=== PATIENT | male | born 1985 | race Caucasian/White ===

== ENCOUNTER 2022-04-12 17:31 | Emergency (ER) | payer MEDICAID, SELFPAY ==
[2022-04-12 17:40] VITALS: BP 150/82; PULSE 73; RESP 18; TEMP 36.5; O2SAT 98; BMI 23.7
--- NOTE | 2022-04-12 17:47 | CRLHL7_ITS ---
For Patients: As a result of the Century Cures Act, medical imaging exams and procedure reports are released immediately into your electronic medical record. You may view this report before your referring provider. If you have questions, please contact your health care provider. INDICATION: Right shoulder pain. TECHNIQUE: Three views of the right shoulder. COMPARISON: None. FINDINGS: No joint space narrowing or erosive change. Soft tissue calcification projected over and superior to the greater tuberosity, suggesting calcific tendinitis. IMPRESSION: Suspected calcific tendinitis. Dictated by Ganesh Durand MD @ 04/12/2022 6:15:00 PM (Electronically Signed)
[2022-04-12] MEDS: predniSONE 10 MG TABLET 50 MG PO (18:09)
[2022-04-12] MEDS: KETOROLAC 10 MG TABLET PO (18:09)
--- NOTE | 2022-04-12 18:47 | ED.NURSE ---
pt given insty meds for toradol and prednisone
--- NOTE | 2022-04-21 12:57 | ED_ITS ---
HPI - General Adult General Chief complaint: Extremity Pain/Injury, Upper Stated complaint: Right Shoulder Pain,Can't Move It-bump on shoulder Time Seen by Provider: 04/12/22 17:34 History of Present Illness HPI narrative: Patient presents with significant shoulder pain. He describes it and is very painful to abduct his shoulder. He has no swelling of the arm, no real trauma. Does report a remote remote history of trauma. He has had trouble using the arm is been very painful. No redness swelling, no fevers. Related Data Home Medications Medication Instructions Recorded Confirmed No Known Home Medications 04/12/22 04/16/22 Allergies Allergy/AdvReac Type Severity Reaction Status Date / Time No Known Drug Allergies Allergy Verified 04/17/22 10:51 Review of Systems Status of ROS: Reports: 6 or more systems reviewed and unremarkable except as noted in History and below [facility] Social History Smoking Status: Never smoker How often do you have a drink containing alcohol: never AUDIT-C Alcohol total score: 0 Non-prescribed substance use: denies use Exam Narrative: Exam Narrative: Limited range motion of the right shoulder, good distal CMS, no redness or warmth of the shoulder. Some mild tenderness over his anterior shoulder consistent with tendinitis Course Vital Signs Vital signs: Initial Vital Signs Temperature 97.7 F 04/12/22 17:40 Temperature Source Temporal Artery Scan 04/12/22 17:40 Pulse Rate 73 04/12/22 17:40 Respiratory Rate 18 04/12/22 17:40 Blood Pressure 150/82 H 04/12/22 17:40 Blood Pressure Mean 104 04/12/22 17:40 Blood Pressure Position Sitting 04/12/22 17:40 Pulse Oximetry 98 04/12/22 17:40 Oxygen Delivery Method 04/12/22 17:40 Vital Signs Temperature 97.7 F 04/12/22 17:40 Pulse Rate 73 04/12/22 17:40 Respiratory Rate 18 04/12/22 17:40 Blood Pressure 150/82 H 04/12/22 17:40 Pulse Oximetry 98 04/12/22 17:40 Oxygen Delivery Method 04/12/22 17:40 Temperature 97.7 F 04/12/22 17:40 Pulse Rate 73 04/12/22 17:40 Respiratory Rate 18 04/12/22 17:40 Blood Pressure 150/82 H 04/12/22 17:40 Pulse Oximetry 98 04/12/22 17:40 Oxygen Delivery Method 04/12/22 17:40 Medical Decision Making MDM Narrative Medical decision making narrative: Patient will get an x-ray of his shoulder, arm sling, recommend icing, anti- inflammatory. Addendum: X-ray of the shoulder shows calcific tendinitis, no fracture. At this point I think he should follow-up with orthopedics arm sling ice anti- inflammatory return as needed, light activity, recheck per Ortho Discharge Plan Discharge Clinical Impression: Acute shoulder pain Patient Disposition: Home, Self-Care Condition: Stable Additional Instructions: Sling, off work, ice to the shoulder 10 minutes 3 times a day if possible, Toradol and prednisone as home from [facility]. Appointment will be requested from the orthopedic office for assessment of his right shoulder, he has calcific tendinitis, and some a some diminishment of his movement consistent with a mild frozen shoulder. He needs to have orthopedic consultation as mention. He also complains of some left hip discomfort and has a prior imaging study can review with Orthopedics at that time. Activity Level: Light activity Activity Detail: Off work until sees Ortho Discharge Diet: Regular Prescriptions: No Action No Known Home Medications Follow Up/Referrals: Provider,Not a Local [Primary Care Provider] - Stand Alone Forms: [employer] Info Instructions
== END 2022-04-12 18:46 | disposition home or self-care (01) ==
PROVIDERS: Emergency Provider Family Medicine
DX: M25.511 Pain in right shoulder (principal)
CPT/HCPCS: 73030; 99283; A9270; J7512

== ENCOUNTER 2022-05-01 07:03 | Outpatient (CLI) | payer MEDICAID, SELFPAY ==
--- NOTE | 2022-05-01 07:15 | MR_ITS ---
[address] [address] Phone:?[phone] Fax:?[phone] Referring Physician Information: Mykel Win [address] [facility] [address] Phone:?[phone] Fax:?[phone] Patient:Margaux Lane D.O.B:?1985 Sex:?Male Phone:?[phone] [facility] MRN:?[id number] Exam Date:?05/01/2022 ? EXAM: MRI EXAMINATION OF THE RIGHT SHOULDER CLINICAL INFORMATION: Right shoulder pain. No specific injury. No history of surgery to this area. Calcific tendinitis. TECHNICAL INFORMATION: Coronal STIR as well as axial, sagittal and coronal PD and T2-weighted images were acquired. INTERPRETATION: Bones: There is no Hill-Sachs impaction deformity. No other evidence for an occult fracture or osseous contusion. No other bone marrow edema pattern. Rotator Cuff: There is an abnormal appearance as seen on series 8 images 6 and 7 as well as series 5 images 11 through 14 of an approximate 1.2 cm AP by 0.4 cm mediolateral low signal intensity focus of tissue within and also just overlying the distal supraspinatus tendon fibers. There is surrounding increased signal intensity of the tendon fibers and surrounding slender intrasubstance partial tearing. Mild infraspinatus tendinopathy. The teres minor tendon is intact. The subscapularis tendon is intact. No appreciable rotator cuff muscle belly atrophy. Coracoacromial arch: There is no discrete subacromial osseous spur. The bony acromiohumeral interval is measuring 7 mm. There is no thickening identified of the coracoacromial ligament. Acromioclavicular joint: There is no significant acromioclavicular joint degenerative arthrosis. No deformity of the underlying supraspinatus tendon. Moderate to marked fluid and edema signal within the subacromial/subdeltoid bursa areas. Biceps tendon: The long head biceps tendon is intact and nondisplaced from the bicipital groove. No evidence for a tendon tear or appreciable changes of tendinopathy. Glenohumeral joint and labrum: No significant glenohumeral joint effusion. No discrete loose body within the joint. Osteochondral surfaces appear relatively preserved. No discrete SLAP tear. No other definite evidence for labral tear. No discrete paralabral cyst is identified. CONCLUSION: 1. There is a 1.2 x 0.4 cm low signal intensity focus of predominantly within, but also just overlying the distal supraspinatus tendon. Appearance in keeping with calcific tendinitis and overlying calcific bursitis. Increased signal intensity with slender intrasubstance partial tearing of the directly surrounding tendon fibers. 2. Borderline narrowed acromiohumeral interval. Moderate to marked subacromial/subdeltoid bursitis. 3. Unremarkable and intact long head biceps tendon. 4. No evidence for glenohumeral chondromalacia. 5. No definite labral tear. No paralabral ganglion cyst. KES Electronically signed on 05/01/2022 9:40:00 AM by Ac Doyle M.D.
== END 2022-05-01 07:04 | disposition home or self-care (01) ==
LOC: MRI 07:04
PROVIDERS: Visit Provider Physician Assistant Surgical
DX: M25.511 Pain in right shoulder (principal); M75.31 Calcific tendinitis of right shoulder; M75.51 Bursitis of right shoulder
CPT/HCPCS: 73221

== ENCOUNTER 2023-12-21 04:20 | Outpatient (CLI) | payer MEDICAID, SELFPAY ==
--- OUTSIDE RECORDS SUMMARY | 2023-12-24 15:51 | XMS_ITS | Clinical Summary ---
Author Organization [facility] Address [place], [place] [address] Care Team Providers Care Manager Fleet Name Role Phone Pcp, No Primary Care [...] Comments Blood Pressure 116/70 03/06/2020 10:32 AM BUSINESS DEVELOPMENT REPRESENTATIVE Pulse 71 03/06/2020 10:32 AM BUSINESS DEVELOPMENT REPRESENTATIVE Temperature 36.6 ??C (97.8 ??F) 07/14/2014 10:56 AM C DT Respiratory Rate 12 07/14/2014 10:56 AM CDT Oxygen Saturation 100% 03/06/2020 10:32 AM BUSINESS DEVELOPMENT REPRESENTATIVE Inhaled Oxygen Concentration - - Weight 78.7 kg (173 lb 6.4 oz) 03/06/2020 10:32 AM BUSINESS DEVELOPMENT REPRESENTATIVE Height 175.3 cm (5' 9.02) 07/14/2014 10:56 [...] COVID-19 vaccine series (1 - 2023-24 season) 2023 Influenza for age 9-49 12/19/2023 Pneumococcal series for age 6-64 Aged Out No longer eligible based on patient's age to complete this topic Care Teams Manager Fleet Relationship Specialty Start Date End Date Pcp, No . PCP - General 03/07/11
== END 2023-12-21 04:21 | disposition home or self-care (01) ==
PROVIDERS: Visit Provider Family Medicine
DX: R10.9 Unspecified abdominal pain (principal)
CPT/HCPCS: A0425; A0433

== ENCOUNTER 2023-12-21 04:56 | Emergency (ER) | payer MEDICAID, SELFPAY ==
[2023-12-21 05:00] VITALS: BP 139/82; PULSE 73; RESP 18; TEMP 37; O2SAT 98; BMI 25.1
--- NOTE | 2023-12-21 05:09 | ED.GENADULT ---
HPI - General Adult General Time Seen by Provider: 05:09 Date Seen: 12/21/23 Chief complaint: Flank Pain Stated complaint: Kidney stone Time Seen by Provider: 12/21/23 05:08 Source: patient and RN notes reviewed Mode of arrival: ambulatory Limitations: no limitations History of Present Illness HPI narrative: Max is a very pleasant 38-year-old gentleman with known history of kidney stones who comes to the emergency room for evaluation regarding the sudden onset of left flank pain. He awoke to this pain at approximately 0300 hours. The pain radiated around to his left groin. He also had vomiting. EMS was called and patient had an IV placed. He was given fentanyl 100 mcg followed by morphine 5 mg x 2. He is currently seen in room 5 in the ED. Max notes that the pain is still present but does not wish to have any pain medication at this time. He notes that the pain always seems to be on the left. Movement does not change the pain. He has not noticed any blood in his urine. He has not had any fever or chills. No recent cough cold congestion. He had not taken any pain medications at home. It had been over a year since this has happened to him. Related Data Previous Rx's ?Medication ?Instructions ?Recorded hydrocodone 5 mg-acetaminophen 325 See Rx Instructions .Route 12/21/23 mg tablet .COMPLEX PRN pain #10 tabs ketorolac 10 mg tablet 10 mg PO Q6H PRN pain #20 tabs 12/21/23 ondansetron 4 mg disintegrating 4 mg PO Q8H PRN nausea and 12/21/23 tablet vomiting #10 tabs tamsulosin 0.4 mg capsule (Flomax) 0.4 mg PO DAILY #7 caps 12/21/23 Allergies Allergy/AdvReac Type Severity Reaction Status Date / Time No Known Drug Allergies Allergy Verified 12/21/23 05:04 Review of Systems Status of ROS: Reports: 10 or more systems reviewed and unremarkable except as noted in History and below Const: Denies: fever or chills ENMT: Denies: throat pain or nasal congestion Cardio: Denies: chest pain or shortness of breath with exertion Resp: Denies: shortness of breath or cough GI: Reports: abdominal pain, nausea and vomiting; Denies: diarrhea or constipation : Denies: painful urination, urinary frequency or blood in urine Musculo: Reports: back pain (Left flank) Integ/Breast: Denies: rash Neuro: Denies: headache PFSH [facility] Medical History Migraine headache ?G43.909 - Migraine, unspecified, not intractable, without status migrainosus (ICD-10) Influenza ?J11.1 - Influenza due to unidentified influenza virus with other respiratory manifestations (ICD-10) Calculus of kidney ?N20.0 - Calculus of kidney (ICD-10) Social History Smoking Status: Never smoker Do you use any of these nicotine containing products: None Second hand tobacco smoke exposure: No How often do you have a drink containing alcohol: never AUDIT-C Alcohol total score: 0 Non-prescribed substance use: denies use service: No Exam Narrative: Exam Narrative: Gene is alert and oriented. He does appear to be in some discomfort. He is able to answer questions. External ears eyes nose clear. Appropriate speech. Heart with regular rate and rhythm and lungs are clear bilaterally. Abdomen is soft. Lower extremities without edema. Const: Vital Signs, click to edit/add: Vital Signs - 24 hr 12/21/23 05:00 Temperature 98.6 F Pulse Rate [Pulse Oximeter] 73 Respiratory Rate 18 Blood Pressure [Ri ght Upper Arm] 139/82 Pulse Oximetry 98 Oxygen Delivery Me thod Room Air Documenting provider has reviewed patient's vital signs: yes Course Course ED Course: At this time I do speak to Isidro at about doing CT. He is wondering if we could do an x-ray instead as he was told that he should not have CTs. We do talk about this and I do tell him that an x-ray may not show exact location of the stone. Given the fact that he required so much pain medication and is still in discomfort I do recommend CT to ascertain location of the stone and size so that we are better able to estimate possibility of passage verses need for urological intervention. After discussions of pros and cons Isidro does agree to CT. This is been ordered as well as a CBC and a basic panel. 500 mL normal saline is also ordered as well as Toradol 15 mg IV. Reevaluation(s) Reevaluation #1: Patient noted to be much improved after Toradol. Vital Signs Vital signs: Initial Vital Signs Temperature 98.6 F 12/21/23 05:00 Temperature Source Temporal Artery Scan 12/21/23 05:00 Pulse Rate 73 12/21/23 05:00 Pulse Rhythm Regular 12/21/23 05:00 Respiratory Rate 18 12/21/23 05:00 Blood Pressure 139/82 12/21/23 05:00 Blood Pressure Mean 101 12/21/23 05:00 Blood Pressure Position Supine 12/21/23 05:00 Pulse Oximetry 98 12/21/23 05:00 Oxygen Delivery Method Room Air 12/21/23 05:00 Vital Signs Temperature 98.6 F 12/21/23 05:00 Pulse Rate 73 12/21/23 05:00 Respiratory Rate 18 12/21/23 05:00 Blood Pressure 139/82 12/21/23 05:00 Pulse Oximetry 98 12/21/23 05:00 Oxygen Delivery Method Room Air 12/21/23 05:00 Temperature 98.6 F 12/21/23 05:00 Pulse Rate 73 12/21/23 05:00 Respiratory Rate 18 12/21/23 05:00 Blood Pressure 139/82 12/21/23 05:00 Pulse Oximetry 98 12/21/23 05:00 Oxygen Delivery Method Room Air 12/21/23 05:00 Medications Administered Medications: Discontinued Medications Generic Name Dose Route Start Last Admin Trade Name Freq PRN Reason Stop Dose Admin Sodium Chloride 500 mls @ 500 mls/hr 12/21/23 05:16 12/21/23 06:35 0.9 % Sodium Chloride 500 Ml IV 12/21/23 06:15 Infused .Q1H ONE Infusion Ketorolac Tromethamine 15 mg 12/21/23 05:18 12/21/23 05:44 Ketorolac 15 Mg/Ml Inj IVP 12/21/23 05:19 15 mg ONCE ONE Administration Medical Decision Making MDM Narrative Medical decision making narrative: 1. Nephrolithiasis with ureteral colic-currently awaiting official radiological read but I do note a stone in the left ureter measuring approximately 3.5 mm. Patient appears to be improved with medications. Addendum: Stone is 4 mm in the proximal ureter. Urinalysis without evidence of UTI. Patient improved after Toradol in the emergency room. Patient had received narcotic pain medication by EMS. Patient will be departing home and will use Flomax 0.4 mg daily for 7 days to hopefully expedite passage of stone. Toradol 10 mg p.o. q.6 hours p.r.n. pain. 20. Cabins 5/3 25 1-2 tablets p.o. q.4-6 hours p.r.n. pain 10. Zofran 4 mg ODT Q 8 hours p.r.n. 10 all prescriptions sent to pharmacy. 2. Disposition-home at this time. Stressed the importance of straining the urine and monitoring for passage of stone. If patient notes stone and pain resolves, nothing more to do at this time unless he wants to follow through with appointment with Urology for stone prevention discussion. If patient does not note stone in has continuing pain will need to see primary MD for monitoring and management of this condition. Patient is instructed to return to the ED for increasing pain not relieved by his medications, fever, worsening symptoms. He voices understanding. Medical Records Medical records reviewed: Yes I reviewed the patient's medical records Lab Data Lab results reviewed: Yes I reviewed the patient's lab results Labs: Lab Results 12/21/23 12/21/23 Range/Units 05:25 06:56 WBC 6.27 (4.50-11.00) K/uL RBC 4.53 (4.30-5.90) m/uL Hgb 14.0 (13.5-17.5) gm/dL Hct 41.1 (37.0-53.0) % MCV 91 (80-100) fL MCH 31 (26-34) pg MCHC 34 (32-36) gm/dL RDW Coeff of Diana 11.6 (11.5-15.5) % Plt Count 134 L (140-440) K/uL Neut % (Auto) 64.1 (42.0-72.0) % Lymph % (Auto) 26.2 (20-44) % Beadle % (Auto) 7.0 (0.0-11.0) % Eos % (Auto) 2.2 (0.0-7.0) % Baso % (Auto) 0.3 (0.0-3.0) % Neut # (Auto) 4.02 (1.7-7.0) K/uL Lymph # (Auto) 1.64 (0.90-2.90) K/uL Beadle # (Auto) 0.40 (0.00-0.90) K/UL Eos # (Auto) 0.14 (0.00-0.50) K/uL Baso # (Auto) 0.02 (0.00-0.30) K/uL Abs Immat Gran (auto) 0.01 (0.00-0.30) K/uL Imm/Tot Granulo (auto) 0.2 % Sodium 137 (135-149) mmol/L Potassium 3.6 (3.6-5.1) mmol/L Chloride 107 (96-114) mmol/L Carbon Dioxide 25 (20-32) mmol/L Anion Gap 5 L (7-15) mEq/L BUN 16 (5-24) mg/dL Creatinine 0.8 (0.5-1.5) mg/dL Estimated Creat Clear 122.74 Estimated GFR 115 ml/min Glucose 102 (60-115) mg/dL Calcium 8.1 L (8.4-10.6) mg/dL Urine Color Yellow (Yellow) Urine Appearance Clear (Clear) Urine pH 7.0 (5.0-8.5) Ur Specific [place] 1.015 (1.000-1.030) Urine Protein Negative (Negative) Urine Glucose (UA) Negative (Negative) Urine Ketones Negative (Negative) Urine Blood 3+ A (Negative) Urine Nitrite Negative (Negative) Urine Bilirubin Negative (Negative) Urine Urobilinogen 0.2 (0.2-1.0) Ur Leukocyte Esterase Negative (Negative) Urine RBC 10-25 A (0-2) Urine WBC 0-2 (0-5) Ur Squamous Epith Cells Few (None-Few) Urine Bacteria None (None) Urine Mucus Moderate A (None) Imaging Data CT scan - abdomen: Attestation: I have reviewed the pertinent imaging results. My impression: By my read there does appear to be a 3.5 cm stone in the left ureter with mild hydronephrosis. Radiologist's impression: Lung bases: Normal. Liver: Normal. No mass. Gallbladder and bile ducts: Normal gallbladder. No bile duct dilation. Pancreas: Normal. Spleen: Normal. Adrenal glands: Normal. Kidneys: Normal renal size and position. No cyst or solid mass seen on noncontrast exam. There is a 4 millimeter calculus in the left proximal ureter. There is upstream ureterectasis and pelvocaliectasis. There is some very minimal Christiana ureteric stranding. There are several other bilateral 2-3 millimeter nonobstructing calculi, primarily in the right kidney. No right-sided urinary tract dilation. Urinary bladder: Normal. Pelvis: No cyst or mass. Vessels: Normal. Bowel: No dilated or inflamed bowel. Appendix not definitely seen.. Large stool burden. Lymph nodes: No adenopathy. Peritoneum: No ascites. Abdominal wall: No hernia. Bones: No fractures. No focal worrisome bone lesions. IMPRESSION: There is a 4 millimeter obstructing calculus in the left proximal ureter. Discharge Plan Discharge Clinical Impression: Nephrolithiasis, Colic, ureteral Patient Disposition: Home, Self-Care Condition: Improved Additional Instructions: There is a 4 mm kidney stone in urea left ureter. For pain: Zofran is a medicine that can be used for nausea so that you are able to take your other medications. Toradol 1 tablet as needed every 6 hours. This cannot be use longer than 5 days. For pain not relieved by Toradol Cabins which is a combination medication of Tylenol and hydrocodone on narcotic as needed. Please be aware that this medication will likely cause constipation and you may want to be on a stool softener at this time. In addition you should not use alcohol or drive if using this narcotic pain medication. Flomax is a medication to help speed the passage of the kidney stone. Take this once daily while you have the stone. Strain urine. If you see this stone in your pain improves you may discontinue all of these medications. If you do not see this stone and your pain continues please see your primary MD for a referral to Urology. Return to the emergency room for fever, chills, vomiting and as needed. Prescriptions: New ondansetron 4 mg tablet,disintegrating 4 mg PO Q8H PRN (Reason: nausea and vomiting) Qty: 10 0RF ketorolac 10 mg tablet 10 mg PO Q6H PRN (Reason: pain) Qty: 20 0RF Rx Instructions: maximum total duration of 5 days from all oral, intranasal, or parenteral formulations hydrocodone-acetaminophen 5-325 mg tablet See Rx Instructions .ROUTE .COMPLEX PRN (Reason: pain) Qty: 10 0RF Rx Instructions: 1-2 tabs p.o. q.4-6 hours p.r.n.. tamsulosin [Flomax] 0.4 mg capsule 0.4 mg PO DAILY Qty: 7 0RF Follow Up/Referrals: Provider,Not a Local [Primary Care Provider] - Stand Alone Forms: [employer] Info Instructions
--- NOTE | 2023-12-21 05:16 | CRLHL7_ITS ---
For Patients: As a result of the Century Cures Act, medical imaging exams and procedure reports are released immediately into your electronic medical record. You may view this report before your referring provider. If you have questions, please contact your health care provider. INDICATION: Left flank pain. COMPARISON: 01/27/2020 TECHNIQUE: CT of the abdomen and pelvis without intravenous contrast. Multiplanar axial, coronal, and sagittal reformats were reconstructed. Contrast: None. FINDINGS: Lung bases: Normal. Liver: Normal. No mass. Gallbladder and bile ducts: Normal gallbladder. No bile duct dilation. Pancreas: Normal. Spleen: Normal. Adrenal glands: Normal. Kidneys: Normal renal size and position. No cyst or solid mass seen on noncontrast exam. There is a 4 millimeter calculus in the left proximal ureter. There is upstream ureterectasis and pelvocaliectasis. There is some very minimal Christiana ureteric stranding. There are several other bilateral 2-3 millimeter nonobstructing calculi, primarily in the right kidney. No right-sided urinary tract dilation. Urinary bladder: Normal. Pelvis: No cyst or mass. Vessels: Normal. Bowel: No dilated or inflamed bowel. Appendix not definitely seen.. Large stool burden. Lymph nodes: No adenopathy. Peritoneum: No ascites. Abdominal wall: No hernia. Bones: No fractures. No focal worrisome bone lesions. IMPRESSION: There is a 4 millimeter obstructing calculus in the left proximal ureter. Please note that all CT scans at this facility use dose modulation, iterative reconstruction, and/or weight-based dosing when appropriate to reduce radiation dose to as low as reasonably achievable. Dictated by Sherlyn Merida MD @ 12/21/2023 6:23:57 AM (Electronically Signed)
[2023-12-21 05:29] LABS: Basophils Absolute Auto 0.02 K/uL (0.00-0.30); Basophils Percent Auto 0.3 % (0.0-3.0); Eosinophils Absolute Auto 0.14 K/uL (0.00-0.50); Eosinophils Percent Auto 2.2 % (0.0-7.0); Hematocrit 41.1 % (37.0-53.0); Immature Granulocytes Abs Auto 0.01 K/uL (0.00-0.30); Immature Granulocytes Pct Auto 0.2 %; Lymphocytes Absolute Auto 1.64 K/uL (0.90-2.90); Lymphocytes Percent Auto 26.2 % (20-44); Mean Corpuscular HGB Conc 34 gm/dL (32-36); Mean Corpuscular Hemoglobin 31 pg (26-34); Mean Corpuscular Volume 91 fL (80-100); Neutrophils Absolute Auto 4.02 K/uL (1.7-7.0); Neutrophils Percent Auto 64.1 % (42.0-72.0); Platelet Count* 134 K/uL (140-440); RDW Coefficient of Variation % 11.6 % (11.5-15.5); Red Blood Count 4.53 m/uL (4.30-5.90); White Blood Count* 6.27 K/uL (4.50-11.00)
--- OUTSIDE RECORDS SUMMARY | 2023-12-21 05:29 | XMS_ITS | Clinical Summary ---
Author Organization [email or web address] [facility] Address [place], [place] [address] Care Team Providers Care Employee Benefits Administrator Name Role Phone Pcp, No Primary Care Provider Unavailabl e Allergies No known active allergies Medications No known medications Active Problems No known active problems Social History Tobacco Use Types Packs/Day Years Used Date Smoking Tobacco: Never Smokeless Tobacco: Never Alcohol Use Standard Drinks/Week Comments No 0 (1 standard drink = 0.6 oz pur e alcohol) Sex and Gender Information Value Date Recorded Sex Assigned at Not on file Gender Identity Not on file Sexual Orientation Not on file Obstetrics History Last Filed Vital Signs Vital Sign Reading Time Taken Comments Blood Pressure 116/70 03/06/2020 10:32 AM SENIOR MARKETING MANAGER Pulse 71 03/06/2020 10:32 AM SENIOR MARKETING MANAGER Temperature 36.6 ??C (97.8 ??F) 07/14/2014 10:56 AM C DT Respiratory Rate 12 07/14/2014 10:56 AM CDT Oxygen Saturation 100% 03/06/2020 10:32 AM SENIOR MARKETING MANAGER Inhaled Oxygen Concentration - - Weight 78.7 kg (173 lb 6.4 oz) 03/06/2020 10:32 AM SENIOR MARKETING MANAGER Height 175.3 cm (5' 9.02) 07/14/2014 10:56 AM C DT Body Mass Index 25.59 07/14/2014 10:56 AM CDT Plan of Treatment Health Maintenance Due Date Last Done Comments Tdap 09/15/1994 Depression screening for age 12+ 1995 HIV for age 15-65 09/15/1998 BMI (ht and wt on same day) for age 18+ 09/15/2001 Hepatitis C screening for ag e 18-79 09/15/2001 Tetanus booster 2003 Lipids for age 35-44 09/15/2018 COVID-19 vaccine series (1 - 2023-24 season) 2022 Influenza for age 9-49 12/19/2023 Pneumococcal series for age 6-64 Aged Out No longer eligible based on patient's age to complete this topic Care Teams Employee Benefits Administrator Relationship Specialty Start Date End Date Pcp, No . PCP - General 03/07/11
[2023-12-21 05:40] LABS: Slide Review Reflex No
[2023-12-21 05:43] LABS: Chloride* 107 mmol/L (96-114); Sodium* 137 mmol/L (135-149)
[2023-12-21] MEDS: 0.9 % SODIUM CHLORIDE 500 ML 500 ML IV (05:43)
[2023-12-21 05:44] LABS: Potassium* 3.6 mmol/L (3.6-5.1)
[2023-12-21] MEDS: KETOROLAC 15 MG/ML inj IVP (05:44)
[2023-12-21 05:46] LABS: Anion Gap 5 mEq/L (7-15); Carbon Dioxide* 25 mmol/L (20-32); Creatinine* 0.8 mg/dL (0.5-1.5); Est. Creatinine Clearance* 122.74; Estimated Glomerular Filt Rate 115 ml/min
[2023-12-21 05:47] LABS: Blood Urea Nitrogen* 16 mg/dL (5-24); Calcium* 8.1 mg/dL (8.4-10.6); Glucose* 102 mg/dL (60-115)
[2023-12-21 07:12] LABS: Appearance Urine Clear (Clear); Bilirubin Urine Negative (Negative); Blood Urine 3+ (Negative); Color Urine Yellow (Yellow); Glucose Urine Negative (Negative); Ketones Urine Negative (Negative); Leukocyte Esterase Urine Negative (Negative); Nitrite Urine Negative (Negative); Protein Urine Negative (Negative); Specific Gravity Urine 1.015 (1.000-1.030); Urobilinogen Urine 0.2 (0.2-1.0)
[2023-12-21 07:23] LABS: Squamous Epithelial Cell Urine Few (None-Few); WBC Urine 0-2 (0-5)
[2023-12-21 07:24] LABS: Mucus Urine Moderate
[2023-12-21 07:35] VITALS: BP 113/68; PULSE 72; RESP 18; O2SAT 98
== END 2023-12-21 07:45 | disposition home or self-care (01) ==
PROVIDERS: Emergency Provider Family Medicine
DX: N20.1 Calculus of ureter (principal)
CPT/HCPCS: 36415; 74176; 80048; 81001; 85025; 96374; 99284; J1885; J7030

== ENCOUNTER 2024-06-26 15:00 | Emergency (ER) | payer MEDICAID, SELFPAY ==
[2024-06-26 15:06] VITALS: BP 140/70; PULSE 78; RESP 20; TEMP 36.7; O2SAT 98
--- OUTSIDE RECORDS SUMMARY | 2024-06-26 15:53 | XMS_ITS | Clinical Summary ---
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 Name Role Phone Pcp, No Primary Care [...] Recorded Sex Assigned at Not on file Legal Sex Male 8:16 AM DRY JANITOR Gender Identity Not on file Sexual Orientation Not on file Obstetrics History Last Filed Vital Signs Vital Sign Reading Time Taken Comments Blood Pressure 116/70 03/06/2020 10:32 AM DRY JANITOR Pulse 71 03/06/2020 10:32 AM DRY JANITOR Temperature 36.6 C (97.8 F) 07/14/2014 10:56 AM CDT Respiratory Rate 12 07/14/2014 10:56 AM CDT Oxygen Saturation 100% 03/06/2020 10:32 AM DRY JANITOR Inhaled Oxygen Concentration - - Weight 78.7 kg (173 lb 6.4 oz) 03/06/2020 10:32 AM DRY JANITOR Height 175.3 cm (5' 9.02) 07/14/2014 10:56 [...] for age 35-44 09/15/2018 COVID-19 vaccine series ( - 2023-25 season) 2023 Influenza Vaccine (#1) 2023 Pneumococcal series for age 6-49 Aged Out No longer eligible based on patient's age to complete this topic Insurance [facility] Care Teams Cane Cutter Relationship Specialty Start Date End Date Pcp, No . PCP - General 03/07/11
[2024-06-26] MEDS: 0.9 % SODIUM CHLORIDE 1000 ml 1,000 ML IV (15:58)
--- NOTE | 2024-06-26 16:04 | ED.ABDPAIN ---
HPI - Abdominal Pain General Date Seen: 06/26/24 Chief Complaint: Abdominal Pain Stated Complaint: Pain in lower left abdomen Time Seen by Provider: 06/26/24 15:14 Source: patient Mode of arrival: ambulatory Limitations: no limitations History of Present Illness HPI narrative: Patient is a 38-year-old gentleman presents here for evaluation of abdominal pain he has had for 4 days on and off, describes his left lower quadrant, has had before approximately 3-4 weeks ago, says is different than his previous kidney stones he had, as this is more in the anterior abdominal region. Is not associated with nausea vomiting, he has been able to eat and drink normally has normal bowel movements. 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 No previous history of any abdominal surgeries. Pain increases with movement or straining, denies any some chest pain shortness of breath fevers chills sore throat associated with this. Related Data Previous Rx's ?Medication ?Instructions ?Recorded hydrocodone 5 mg-acetaminophen 325 See Rx Instructions .Route 12/21/23 mg tablet .COMPLEX PRN pain #10 tabs ketorolac 10 mg tablet 10 mg PO Q6H PRN pain #20 tabs 12/21/23 ondansetron 4 mg disintegrating 4 mg PO Q8H PRN nausea and 12/21/23 tablet vomiting #10 tabs tamsulosin 0.4 mg capsule (Flomax) 0.4 mg PO DAILY #7 caps 12/21/23 oxycodone-acetaminophen 5 mg-325 1 tab PO Q6H PRN pain #10 tabs 06/26/24 mg tablet (Percocet) Allergies Allergy/AdvReac Type Severity Reaction Status Date / Time No Known Drug Allergies Allergy Verified 12/21/23 05:04 Review of Systems Status of ROS Reports: 10 or more systems reviewed and unremarkable except as noted in History and below [facility] Medical History Migraine headache ?G43.909 - Migraine, unspecified, not intractable, without status migrainosus (ICD-10) Influenza ?J11.1 - Influenza due to unidentified influenza virus with other respiratory manifestations (ICD-10) Calculus of kidney ?N20.0 - Calculus of kidney (ICD-10) Social History Smoking Status: Never smoker Do you use any of these nicotine containing products: None Second hand tobacco smoke exposure: No How often do you have a drink containing alcohol: never AUDIT-C Alcohol total score: 0 Non-prescribed substance use: denies use service: No Exam Narrative: Exam Narrative: On examination in room 2 he is in no apparent distress he is pleasant alert, pupils equal round reactive to light there is no scleral icterus redness TMs are normal oropharynx normal there is no adenopathy anterior posterior chains his neck is supple with absence of meningismus, abdomen shows some [id number] tenderness in the left lower quadrant, he has no peritoneal signs bowel sounds are normal, no CVA tenderness normal male genitalia, no inguinal hernias noted. He moves all extremities independently and well, skin reveals no petechiae rashes, neurologically intact moving his upper lower extremities, skin turgor is normal and there is no rashes. Const: Vital Signs, click to edit/add: Vital Signs - 24 hr 06/26/24 15:06 Temperature 98.1 F Pulse Rate [Pulse Oximeter] 78 Respiratory Rate 20 Blood Pressure [Ri ght Upper Arm] 140/70 H Pulse Oximetry 98 Oxygen Delivery Me thod Room Air Documenting provider has reviewed patient's vital signs: yes Course Vital Signs Vital signs: Initial Vital Signs Temperature 98.1 F 06/26/24 15:06 Temperature Source Temporal Artery Scan 06/26/24 15:06 Pulse Rate 78 06/26/24 15:06 Respiratory Rate 20 06/26/24 15:06 Blood Pressure 140/70 H 06/26/24 15:06 Blood Pressure Mean 93 06/26/24 15:06 Pulse Oximetry 98 06/26/24 15:06 Oxygen Delivery Method Room Air 06/26/24 15:06 Vital Signs Temperature 98.1 F 06/26/24 15:06 Pulse Rate 78 06/26/24 15:06 Respiratory Rate 20 06/26/24 15:06 Blood Pressure 140/70 H 06/26/24 15:06 Pulse Oximetry 98 06/26/24 15:06 Oxygen Delivery Method Room Air 06/26/24 15:06 Temperature 98.1 F 06/26/24 15:06 Pulse Rate 78 06/26/24 15:06 Respiratory Rate 20 06/26/24 15:06 Blood Pressure 140/70 H 06/26/24 15:06 Pulse Oximetry 98 06/26/24 15:06 Oxygen Delivery Method Room Air 06/26/24 15:06 Medications Administered Medications: Discontinued Medications Generic Name Dose Route Start Last Admin Trade Name Freq PRN Reason Stop Dose Admin Sodium Chloride 1,000 mls @ 1,000 mls/hr 06/26/24 15:45 06/26/24 17:23 0.9 % Sodium Chloride 1000 Ml IV 06/26/24 16:44 Infused .Q1H BRI Infusion MDM - Abdominal Pain MDM Narrative Medical decision making narrative: During this evaluation of this patient I considered multiple differential diagnosis is which included the life-threatening such as appendicitis, aortic aneurysm, mesenteric ischemia, bowel perforation, volvulus, and bowel obstruction. Other differential diagnosis is include but are not limited to cholecystitis, pancreatitis, hepatitis, gastritis, GERD, diverticulitis, peptic ulcer disease, pyelonephritis/UTI, renal colic/stone, testicular torsion as well as other acute scrotal processes, inflammatory bowel disease, as well as other etiologies Differential Diagnosis Differential diagnosis: Likely abdominal pain, acute appendicitis, calculus of kidney, constipation, diverticulitis, gastroenteritis, pancreatitis and small bowel obstruction Medical Records Attestation: I reviewed the patient's medical records. Lab Data Attestation: I reviewed the patient's lab results. Labs: Lab Results 06/26/24 Range/Units 15:55 WBC 5.15 (4.50-11.00) K/uL RBC 4.86 (4.30-5.90) m/uL Hgb 15.2 (13.5-17.5) gm/dL Hct 43.7 (37.0-53.0) % MCV 90 (80-100) fL MCH 31 (26-34) pg MCHC 35 (32-36) gm/dL RDW Coeff of Diana 11.7 (11.5-15.5) % Plt Count 152 (140-440) K/uL Neut % (Auto) 58.1 (42.0-72.0) % Lymph % (Auto) 32.8 (20-44) % Wilbarger % (Auto) 7.2 (0.0-11.0) % Eos % (Auto) 1.7 (0.0-7.0) % Baso % (Auto) 0.2 (0.0-3.0) % Neut # (Auto) 2.99 (1.7-7.0) K/uL Lymph # (Auto) 1.69 (0.90-2.90) K/uL Wilbarger # (Auto) 0.40 (0.00-0.90) K/UL Eos # (Auto) 0.09 (0.00-0.50) K/uL Baso # (Auto) 0.01 (0.00-0.30) K/uL Abs Immat Gran (auto) 0.00 (0.00-0.30) K/uL Imm/Tot Granulo (auto) 0.0 % Sodium 138 (135-149) mmol/L Potassium 4.3 (3.6-5.1) mmol/L Chloride 102 (96-114) mmol/L Carbon Dioxide 28 (20-32) mmol/L Anion Gap 8 (7-15) mEq/L BUN 16 (5-24) mg/dL Creatinine 0.8 (0.5-1.5) mg/dL Estimated GFR 115 ml/min Glucose 93 (60-115) mg/dL Calcium 8.9 (8.4-10.6) mg/dL Total Bilirubin 0.5 (0.1-1.5) mg/dL Direct Bilirubin 0.2 (0.0-0.5) mg/dL AST 21 (12-35) U/L ALT 24 (4-50) U/L Alkaline Phosphatase 70 (40-150) U/L Total Protein 7.3 (6.0-8.3) g/dL Albumin 4.5 (3.3-5.0) g/dL Amylase 79 (18-89) U/L Lipase 70 (23-300) U/L Imaging Data CT scan - abdomen: Attestation: I have reviewed the pertinent imaging results. My impression: No evidence of acute issue Radiologist's impression: [address] [address] Diagnostic Imaging Report Patient: Aman Lane MR#: [id number] : 1985 Acct:[id number] Loc: ED Service Date: 06/26/[address]: Ordering Physician: Kevin Levin M.D. Date of Service: 06/26/24 Procedure(s): CT abdomen pelvis w con Accession Number(s): [id number] cc: Provider,Not a Local; Kevin Levin M.D.~ For Patients: As a result of the Cures Act, medical imaging exams and procedure reports are released immediately into your electronic medical record. You may view this report before your referring provider. If you have questions, please contact your health care provider. INDICATION: Left abdominal pain TECHNIQUE: CT abdomen and pelvis acquired with 82 cc Isovue 370 IV contrast. COMPARISON: CT abdomen pelvis 12/21/2023 FINDINGS: Lower chest: Unremarkable. Liver: Unremarkable. Gallbladder and bile ducts: Unremarkable. Pancreas: Unremarkable. Spleen: Unremarkable. Adrenal glands: Unremarkable. Kidneys: Bilateral nonobstructing nephroliths. Subcentimeter hypodense lesion in the left kidney, likely cyst. GI tract: No obstruction. No evidence of significant bowel inflammation. Appendix is not visualized, but there are no secondary signs of appendicitis in the right lower quadrant. Vasculature: Abdominal aorta is normal in caliber. Minimal infrarenal aorta atherosclerosis. Mesenteric arteries are patent. Lymph nodes: No lymphadenopathy. Peritoneum/Abdominal Wall: Soft tissue stranding and peritoneal thickening surrounding a well-circumscribed area of fat in the left lower quadrant (2/104). Pelvis: Unremarkable. Bones: Schmorl`s node at L3 is similar to prior. IMPRESSION: Epiploic appendagitis in the left lower quadrant. Please note that all CT scans at this facility use dose modulation, iterative reconstruction, and/or weight-based dosing when appropriate to reduce radiation dose to as low as reasonably achievable. 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 It is also very constipating and cause cause some nausea, increasing abdominal pain, nausea vomiting, fevers chills or sweats that he should come back and be seen. But this usually runs a course of about 3-5 days again. Activity Level: Light activity Discharge Diet: Full Liquid Prescriptions: New oxycodone-acetaminophen [Percocet] 5-325 mg tablet 1 tab PO Q6H PRN (Reason: pain) Qty: 10 0RF No Action ondansetron 4 mg tablet,disintegrating 4 mg PO Q8H PRN (Reason: nausea and vomiting) Qty: 10 0RF ketorolac 10 mg tablet 10 mg PO Q6H PRN (Reason: pain) Qty: 20 0RF Rx Instructions: maximum total duration of 5 days from all oral, intranasal, or parenteral formulations hydrocodone-acetaminophen 5-325 mg tablet See Rx Instructions .ROUTE .COMPLEX PRN (Reason: pain) Qty: 10 0RF Rx Instructions: 1-2 tabs p.o. q.4-6 hours p.r.n.. tamsulosin [Flomax] 0.4 mg capsule 0.4 mg PO DAILY Qty: 7 0RF Follow Up/Referrals: Provider,Not a Local [Primary Care Provider] - Stand Alone Forms: [facility] Info Instructions
[2024-06-26 16:06] LABS: Basophils Absolute Auto 0.01 K/uL (0.00-0.30); Basophils Percent Auto 0.2 % (0.0-3.0); Eosinophils Absolute Auto 0.09 K/uL (0.00-0.50); Eosinophils Percent Auto 1.7 % (0.0-7.0); Hematocrit 43.7 % (37.0-53.0); Hemoglobin* 15.2 gm/dL (13.5-17.5); Lymphocytes Absolute Auto 1.69 K/uL (0.90-2.90); Lymphocytes Percent Auto 32.8 % (20-44); Mean Corpuscular HGB Conc 35 gm/dL (32-36); Mean Corpuscular Hemoglobin 31 pg (26-34); Mean Corpuscular Volume 90 fL (80-100); Monocytes Percent Auto 7.2 % (0.0-11.0); Neutrophils Absolute Auto 2.99 K/uL (1.7-7.0); Neutrophils Percent Auto 58.1 % (42.0-72.0); Platelet Count* 152 K/uL (140-440); RDW Coefficient of Variation % 11.7 % (11.5-15.5); Red Blood Count 4.86 m/uL (4.30-5.90); White Blood Count* 5.15 K/uL (4.50-11.00)
[2024-06-26 16:12] LABS: Slide Review Reflex No
[2024-06-26 16:27] LABS: Albumin* 4.5 g/dL (3.3-5.0); Chloride* 102 mmol/L (96-114); Potassium* 4.3 mmol/L (3.6-5.1); Sodium* 138 mmol/L (135-149)
[2024-06-26 16:30] LABS: Alkaline Phosphatase* 70 U/L (40-150); Amylase* 79 U/L (18-89); Anion Gap 8 mEq/L (7-15); Aspartate Amino Transferase* 21 U/L (12-35); Bilirubin Direct* 0.2 mg/dL (0.0-0.5); Bilirubin Total* 0.5 mg/dL (0.1-1.5); Blood Urea Nitrogen* 16 mg/dL (5-24); Calcium* 8.9 mg/dL (8.4-10.6); Carbon Dioxide* 28 mmol/L (20-32); Creatinine* 0.8 mg/dL (0.5-1.5); Estimated Glomerular Filt Rate 115 ml/min; Glucose* 93 mg/dL (60-115); Total Protein* 7.3 g/dL (6.0-8.3)
[2024-06-26 16:31] LABS: Alanine Aminotransferase* 24 U/L (4-50); Lipase* 70 U/L (23-300)
== END 2024-06-26 17:35 | disposition home or self-care (01) ==
PROVIDERS: Emergency Provider Family Medicine
DX: R10.9 Unspecified abdominal pain (principal); K63.89 Other specified diseases of intestine
CPT/HCPCS: 36415; 74177; 80048; 80076; 81001; 82150; 83690; 85025; 96360; 99284; 99285; J7030; Q9967